=== PATIENT | female | born 1990 | race Caucasian/White ===

== ENCOUNTER 2024-02-10 14:36 | Inpatient (IN) | payer MEDICAID, SELFPAY ==
--- NOTE | ~2024-02-10 | CT_ITS ---
EXAMINATION: CT FOOT WITH IV CONTRAST RIGHT CLINICAL INFORMATION: ? osteo - pain, redness and swelling COMPARISON: None. TECHNIQUE: IV contrast and CT of the right foot. This contrast: Omnipaque [address] examination was performed using dose optimization techniques as appropriate, variously including the following: *Automated exposure control *Adjustment of mA and/or kV according to patient size (this includes techniques or standardized protocols for targeted exams where dose is matched to indication/reason for exam; i.e. extremities or head) *Use of iterative reconstruction technique DLP: 169 mGy-cm FINDINGS: Extensive subcutaneous fat reticulation consistent with acute inflammatory changes is noted with findings prominent along the base and medial aspect of the head of the first metatarsal and along the plantar aspect of the calcaneus. No soft tissue emphysematous changes are visualized. No embedded radiopaque foreign bodies noted. No ankle joint effusion demonstrated. No fractures or subluxations visualized. No erosive osseous lesions are noted to suggest possible osteomyelitis. No arthropathic changes identified. No discrete soft tissue fluid collections visualized. CT/CT foot RT w IV con IMPRESSION: Extensive soft tissue inflammatory changes. No evidence of osteomyelitis or septic arthropathy. No arthropathic changes of the foot. No soft tissue emphysematous changes to suggest necrotizing fasciitis. Electronically signed by: Venkat Looney MD 02/11/2024 04:52 AM EDT
[2024-02-10 14:46] VITALS: BP 168/80; PULSE 100; O2SAT 94
[2024-02-10 14:54] VITALS: BP 150/80; PULSE 93; RESP 16; TEMP 38.4; O2SAT 96; BMI 25.7
--- NOTE | 2024-02-10 14:59 | ED_ITS ---
HPI - General Adult General Chief complaint: Extremity Problem Stated complaint: LEG PAIN/? INF S/P INJ DRUGS,DIFF AMB PER EMS Time Seen by Provider: 02/10/24 21:01 Source: patient Mode of arrival: ambulatory Limitations: other History of Present Illness ED Provider: Dr. Lorraine Mota HPI narrative: patient comes to the emergency room complaining of 1 day of right greater toe pain and swelling. Patient states that her toe keeps getting bigger and more painful. Patient admits to IV drug use. It is difficult to get history from the patient as she keeps falling asleep, patient is under the influence of drugs versus alcohol Related Data Allergies Allergy/AdvReac Type Severity Reaction Status Date / Time amoxicillin [AMOXICILLIN] Allergy Unknown UNKNOWN Verified 02/10/24 14:57 Review of Systems 2 Review of Systems: Constitutional : No Weight loss, No Fever, No Chills, No Night Sweats, No Fatigue, No Malaise ENT/Mouth : No Hearing loss, No Ear Pain, No Nasal Congestion, No Sinus Pain, No Hoarseness, No sore throat, No Rhinorrhea, No Swallowing Difficulty Eyes: No Eye Pain, No Swelling, No Redness, No Foreign Body, No Discharge, No Vision Changes Cardiovascular : No Chest Pain, No SOB, No Dyspnea on Exertion, No Orthopnea, No Edema, No Palpitations Respiratory : No Cough, No Sputum, No Wheezing, No Smoke Exposure, No Dyspnea Gastrointestinal : No Nausea, No Vomiting, No Diarrhea, No Constipation, No abdominal Pain, No Hematochezia, No Melena Genitourinary : no irregular bleeding, No Dysuria, No Urinary Frequency, No Hematuria, No Urinary Incontinence, No Urgency, No Flank Pain, No Urinary Flow Changes, No Hesitancy Musculoskeletal : No joint pain, No Myalgias, No Joint Swelling Skin : complaining of greater toe pain and swelling Neuro : No Weakness, No Numbness, No Paresthesias, No Loss of Consciousness, No Dizziness, No Headache Psych : No Anxiety/Panic, No Depression, No SI/HI/AH/VH, No Social Issues, Heme/Lymph: No Bruising, No Bleeding,No Lymphadenopathy Endocrine : No Polyuria, No Polydipsia, No Temperature Intolerance PMFSH Past Medical History Medical History IV drug user Social History Social History Advance Directives: No Advance Directives Information Provided: No Physical Exam ED Vital Signs: Vital Signs - 24 hr 02/10/24 14:54 02/10/24 20:39 Temperature 101.2 F H 98.8 F Pulse Rate 93 86 Respiratory Rate 16 15 Blood Pressure 150/80 H 126/88 Pulse Oximetry 96 98 Oxygen Delivery Method Room Air Room Air BMI result Body Mass Index 25.7 Const Other: Appearance: Alert. Oriented X3. No acute distress. Eyes: Pupils equal, round and reactive to light. ENT: Pharynx normal. Neck: Normal inspection. Neck supple. No lymph nodes noted. No crepitus CVS: Normal heart rate and rhythm. Pulses normal. Normal S1 and S2, +2 left sternal border systolic murmur Respiratory: No respiratory distress. Breath sounds normal. No Wheezing. No rales Abdomen: Soft and nontender. No rigidity. No distention. Skin: Skin warm and dry. Normal skin color. Normal skin turgor. patient is great toe on the right foot looks swollen, erythematous, warm to touch Extremities: No lower extremity edema. No Lacerations. No Rash Neuro: Oriented X 3. No motor deficit. No sensory deficit. Moving all extremities. No slurred speech. CN 2 through 12 grossly intact Psych: calm, cooperative, normal affect Course Course Course Narrative: RME, this is a rapid medical exam performed by Louis Lopez please refer to primary provider for complete H&P- 33-year-old female presents for evaluation of right great toe and lower leg pain. Patient reports injecting to her right thigh but has pain mostly to the right great toe. The toe was edematous, erythematous. Plan for septic workup Medical Decision Making Medical Decision Making [facility] Narrative: - my interpretation of labs: Patient's white blood cell count 12.4, fever of 101.2 F. normal blood pressure - lactic acid and blood cultures are pending - sepsis is not suspected - patient declined x-ray of the foot - patient receiving normal saline IV fluids, vancomycin and Zosyn - on physical exam, patient has systolic murmur. According to the patient, she has never been told she has a heart murmur. - I discussed the above-mentiond with Dr. Khan from the Medicine team, patient being admitted Differential Diagnosis Differential Diagnoses: The differential diagnosis associated with the presentation includes ( cellulitis, abscess, endocarditis) Admission/Observation Consideration of admission/observation: Escalation of care including admission/observation considered Consult Healthcare Provider Management of the patient was discussed with: Hospitalist Lab Data MDM Lab Attestation statement: I reviewed the patient's lab results. 02/10/24 20:01 02/10/24 20:01 Labs: Lab Results 02/10/24 Range/Units 20:01 WBC 12.4 H (4.8-10.8) X10*3/uL RBC 3.86 L (4.20-5.50) X10*6/uL Hgb 10.9 L (12.0-16.0) g/dl Hct 32.5 L (37.0-47.0) % MCV 84.2 (80.0-98.0) fL MCH 28.2 (27.0-33.0) pg MCHC 33.5 (31.0-35.0) g/dl RDW 12.3 (11.0-16.0) % Plt Count 186 (160-400) X10*3/uL MPV 10.8 (9.4-12.3) fL Immature Gran % (Auto) 0.4 (0.0-0.4) % Neut % (Auto) 79.2 H (45-73) % Lymph % (Auto) 13.3 L (20-40) % [place] % (Auto) 6.7 (2-11) % Eos % (Auto) 0.2 (0-4) % Baso % (Auto) 0.2 (0-2) % Lymph # (Auto) 1.7 (1.2-4.9) X10*3/uL [place] # (Auto) 0.8 (0.1-1.2) X10*3/uL Eos # (Auto) 0.0 (0.0-0.4) X10*3/uL Baso # (Auto) 0.0 (0.0-0.2) X10*3/uL Abs Immat Gran (auto) 0.05 H (0.00-0.03) X10*3/uL Absolute Neuts (auto) 9.8 H (2.0-8.3) x10*3/uL Absolute Nucleated RBC 0.000 (0.0-0.012) X10*3/uL Nucleated RBC % (auto) 0.0 (0.0-0.2) /100WBC Sodium 138 (135-145) mmol/L Potassium 3.3 (3.3-5.1) mmol/L Chloride 104 (96-108) mmol/L Carbon Dioxide 25 (22-29) mmol/L Anion Gap 12 (12-20) BUN 10 (9-16) mg/dL Creatinine 0.64 (0.5-1.4) mg/dL Estim Creat Clear Calc 116.1 Estimated GFR > 60 Random Glucose 102 (60-115) mg/dL Lactic Acid 0.7 (0.5-2.0) mmol/L Calcium 8.8 (8.4-10.2) mg/dL Total Bilirubin 0.6 (0.0-1.0) mg/dL AST 18 (5-31) U/L ALT 17 (0-31) U/L Alkaline Phosphatase 50 (39-117) U/L C-Reactive Protein 15.65 H (< or = 0.50) mg/dL Total Protein 7.2 (6.5-8.0) g/dL Albumin 3.7 (3.5-5.0) g/dL Lipase 7 L (8-78) U/L Ethyl Alcohol < 10 mg/dL Critical Care Time Critical Care Time Critical Care Time: Yes Total Critical Care Time: 60 Attestation: I have personally provided critical care time. Time includes review of lab data, radiology results, discussion with consultants, and monitoring for potential decompensation. Intervention performed as documented. Discharge Plan Discharge Clinical Impression: Cellulitis, Systolic murmur Patient Disposition: Admitted As Inpatient Print Language: Libyan
[2024-02-10 20:10] LABS: MANUAL DIFF FLAG NO
[2024-02-10 20:12] LABS: Basophils Percent Auto 0.2 % (0-2); Eosinophils Percent Auto 0.2 % (0-4); Hematocrit 32.5 % (37.0-47.0); Hemoglobin 10.9 g/dl (12.0-16.0); Imm Gran Abs Auto 0.05 X10*3/uL (0.00-0.03); Imm Gran Pct Auto 0.4 % (0.0-0.4); Lymphocytes Absolute Auto 1.7 X10*3/uL (1.2-4.9); Lymphocytes Percent Auto 13.3 % (20-40); Mean Corpuscular HGB Conc 33.5 g/dl (31.0-35.0); Mean Corpuscular Hemoglobin 28.2 pg (27.0-33.0); Mean Corpuscular Volume 84.2 fL (80.0-98.0); Mean Platelet Volume 10.8 fL (9.4-12.3); Monocytes Absolute Auto 0.8 X10*3/uL (0.1-1.2); Monocytes Percent Auto 6.7 % (2-11); Neutrophils Absolute Auto 9.8 x10*3/uL (2.0-8.3); Neutrophils Percent Auto 79.2 % (45-73); Platelet Count 186 X10*3/uL (160-400); Red Blood Count 3.86 X10*6/uL (4.20-5.50); Red Cell Distribution Width 12.3 % (11.0-16.0); White Blood Count 12.4 X10*3/uL (4.8-10.8)
[2024-02-10 20:25] LABS: Alanine Aminotransferase 17 U/L (0-31); Albumin Level 3.7 g/dL (3.5-5.0); Alkaline Phosphatase 50 U/L (39-117); Anion Gap 12 (12-20); Aspartate Amino Transferase 18 U/L (5-31); Bilirubin Total 0.6 mg/dL (0.0-1.0); Blood Urea Nitrogen 10 mg/dL (9-16); C Reactive Protein 15.65 mg/dL (< or = 0.50); Calcium 8.8 mg/dL (8.4-10.2); Carbon Dioxide 25 mmol/L (22-29); Chloride 104 mmol/L (96-108); Creatinine Clr Calc Pharmacy 116.1; Estimated Glomerular Filt Rate > 60; Glucose Random 102 mg/dL (60-115); Lipase 7 U/L (8-78); Potassium 3.3 mmol/L (3.3-5.1); Sodium 138 mmol/L (135-145); Total Protein 7.2 g/dL (6.5-8.0)
[2024-02-10 20:39] VITALS: BP 126/88; PULSE 86; RESP 15; TEMP 37.1; O2SAT 98
[2024-02-10 20:39] LABS: Ethanol < 10 mg/dL
--- NOTE | 2024-02-10 20:46 | PC.NURSE ---
[facility] [place]
[2024-02-10 20:58] LABS: Lactic Acid 0.7 mmol/L (0.5-2.0)
--- NOTE | 2024-02-10 22:34 | PM.IMHP ---
History of Present Illness Date of Service: 02/10/24 Chief Complaint: Foot infection This is a 33-year-old female with pertinent history of IV substance use disorder who presents to the emergency department for evaluation of right foot pain. Patient states her symptoms started 1 day prior to presentation. She initially had right great toe reddening, pain and it soon progressed to involve the right foot. Also with warmth. Does endorse associated fevers and chills. She admits to using IV drugs in her right leg. Never has had skin infection in the past. No chest pain, palpitations, shortness of breath, abdominal pain, changes in urinary or bowel habits. In the emergency department, patient was found to be septic and initiated on empiric IV antibiotics. Review of Systems Constitutional: Constitutional: Reports fatigue Cardiovascular: Cardiovascular: Reports no additional cardiovascular complaints Respiratory: Respiratory: Reports no additional respiratory complaints Gastrointestinal: Gastrointestinal: Reports no additional gastrointestinal complaints Genitourinary: Genitourinary: Reports no additional female genitourinary complaints Endocrine: Endocrine: Reports fatigue [facility] Medical History IV drug user Pertinent family history: No family history of early cad Social History Advance Directives: No Advance Directives Information Provided: No Meds Allergies Allergy/AdvReac Type Severity Reaction Status Date / Time amoxicillin [AMOXICILLIN] Allergy Unknown UNKNOWN Verified 02/10/24 14:57 Active Medications: Current Medications Sodium Chloride (Ns) 1,000 mls @ 999 mls/hr IVCONT .Q1H1M ONE Stop: 02/10/24 23:21 Vancomycin HCl 1,000 mg/Vancomycin HCl 750 mg/ Sodium Chloride 535 mls @ 267.5 mls/hr IV ONCE ONE Stop: 02/11/24 00:20 Piperacillin Sod/Tazobactam (Sod 3.375 gm/ Sodium Chloride) 50 mls @ 100 mls/hr IV ONCE ONE Stop: 02/10/24 22:50 Physical Exam Vital Signs and Narrative: Vital Signs: Last Vital Signs Temp 98.8 F 02/10/24 20:39 Pulse 86 02/10/24 20:39 Resp 15 02/10/24 20:39 BP 126/88 02/10/24 20:39 Pulse Ox 98 02/10/24 20:39 O2 Del Method Room Air 02/10/24 20:39 BMI result Body Mass Index 25.7 Middle-aged female lying in bed in no distress Neck supple, no JVD Regular rate and rhythm, S1-S2 heard, systolic murmur+ Regular breath sounds bilaterally, no wheezing or crackles appreciated Abdomen soft nontender, no guarding, no rigidity Patient is awake, alert and oriented to self, place, time and person ; no focal motor deficit Psych: Normal mood Right foot great toe and foot with erythema swelling, warmth and tenderness ; toenails with nail discoloration, nail plate thickening and destruction Results Labs 02/10/24 20:01 02/10/24 20:01 Labs: Laboratory Results - last 24 hr 02/10/24 20:01 MCV 84.2 MCH 28.2 MCHC 33.5 RDW 12.3 Plt Count 186 MPV 10.8 Immature Gran % (Auto) 0.4 Neut % (Auto) 79.2 H Lymph % (Auto) 13.3 L [place] % (Auto) 6.7 Eos % (Auto) 0.2 Baso % (Auto) 0.2 Lymph # (Auto) 1.7 [place] # (Auto) 0.8 Eos # (Auto) 0.0 Baso # (Auto) 0.0 Abs Immat Gran (auto) 0.05 H Absolute Neuts (auto) 9.8 H Absolute Nucleated RBC 0.000 Nucleated RBC % (auto) 0.0 Anion Gap 12 Estim Creat Clear Calc 116.1 Estimated GFR > 60 Random Glucose 102 Lactic Acid 0.7 Calcium 8.8 Total Bilirubin 0.6 AST 18 ALT 17 Alkaline Phosphatase 50 C-Reactive Protein 15.65 H Total Protein 7.2 Albumin 3.7 Lipase 7 L Ethyl Alcohol < 10 Assessment and Plan (1) Cellulitis: Status: Acute Plan This is a 33-year-old female with pertinent history of IV substance use disorder who presents to the emergency department for evaluation of right foot pain. Patient states her symptoms started 1 day prior to presentation. #. Sepsis due to right foot cellulitis: Resuscitated with IV crystalloids. Initiating empiric IV vancomycin. Lactic acid and blood culture obtained. Monitor for improvement. Imaging pending to rule out underlying osteomyelitis or collection. #. Right foot onychomycosis: Initiating terbinafine #. Polysubstance use disorder: UDS pending. Monitor for withdrawal. Consulted Addiction Team Med rec pending DVT prophylaxis: Lovenox Full code Admit as inpatient and will require two night minimum hospital stay for IV antibiotics (as above), which is not possible in a lesser acute setting. Quality Stroke Does the patient have a stroke diagnosis?: No VTE Prior VTE?: No VTE Risk Level:: Medical - moderate - high VTE Device Contraindication: Treatment Not Indicated VTE Drug Contraindication: N/A - Med Ordered
[2024-02-10 22:55] LABS: Erythrocyte Sedimentation Rate 37 MM/HR (0-20)
[2024-02-10 23:28] LABS: HCG Quantitative < 2 mIU/mL
[2024-02-10 23:31] LABS: Appearance Urine Clear; Color Urine Yellow; Glucose Urine UA Negative (Negative); Leukocyte Esterase Urine Trace (Negative); Nitrite Urine Negative (Negative); UMIC TRIGGER UACC YES; Urine Blood Negative (Negative); Urine Ketones 15 mg/dL (Negative); Urine Protein Trace mg/dL (Neg-Trace)
[2024-02-10 23:34] LABS: Bacteria Urine None Seen (None Seen); Hyaline Casts Urine 0-2 /LPF (0-2); RBC Urine 0-2 /HPF (0-2); Squamous Epithelial Cell Urine 0-2 /HPF (0-2); WBC Urine 0-5 /HPF (0-5)
[2024-02-10 23:42] LABS: Amphetamine Screen Urine Not Detected (Not Detect); Barbiturates, Urine Not Detected (Not Detect); Benzodiazepines Screen Urine POSITIVE (Not Detect); Buprenorphine Scr Not Detected (Not Detect); Cannabinoid Screen Urine Not Detected (Not Detect); Cocaine Screen Urine POSITIVE (Not Detect); Fentanyl, urine POSITIVE (Not Detect); Methadone Screen, Urine Positive (Not Detect); Opiate Screen Urine POSITIVE (Not Detect); Oxycodone Screen Urine Not Detected (Not Detect); Phencyclidine Screen Urine Not Detected (Not Detect)
--- NOTE | 2024-02-10 23:44 | PC.NURSE ---
CT reported IV access infiltrated while attmepting to flush. Pt has no other access at this time.
[2024-02-11] MEDS: vancomycin HCL 1,000 MG, vancomycin HCL 750 MG in 0.9 % Sodium Chloride 500 ML 267.5 MG IV (00:10)
[2024-02-11] MEDS: 0.9 % Sodium Chloride 1,000 ML 999 ML IVCONT (00:10)
--- NOTE | 2024-02-11 00:13 | PC.NURSE ---
IV access established via ultrasound, 20G right basilic vein. No signs of infiltration or pain reported on insertion. Pt tolerated well.
[2024-02-11] MEDS: Enoxaparin Sodium 40 MG/0.4 ML SYRINGE SUBCUT ×2 (01:02→23:07)
[2024-02-11] MEDS: 0.9 % Sodium Chloride Flush 3 ML SYRINGE IVFLUSH ×3 (01:04→23:13)
[2024-02-11] MEDS: iohexoL 350 MG/ML 100 ML INFUS..BTL 85 ML IV (01:04)
[2024-02-11] MEDS: Piperacillin Sodium/Tazobactam 3.375 GM in 0.9 % Sodium Chloride 50 ML IV (02:28)
[2024-02-11 03:36] VITALS: BP 147/84; PULSE 89; RESP 16; O2SAT 94
--- NOTE | 2024-02-11 04:19 | PC.NURSE ---
Pt is sleeping, but arousable with verbal stimuli. Appears comfortable. No verbalized needs, but call light is within reach and bed is at lowest position. Will continue to monitor for any changes.
--- NOTE | 2024-02-11 06:26 | PHA.PROG ---
Admission Date/Time: February 10, 2024 22:33 Indication: Skin Weight in k.771 kg Serum Creatinine - Last 168 Hours 02/10/24 20:01 Creatinine 0.64 Estimated CrCl and GFR - Last 168 Hours 02/10/24 20:01 Estim Creat Clear Calc 116.1 Estimated GFR > 60 Vancomycin Loading Dose: 1,750 mg Current Vancomycin Dosing Regimen: 1,250 mg q12h Vancomycin Monitoring using AUC goal of 400 - 600 range with trough as surrogate marker: 515, predicted trough 14.5 Date and Time for next Vancomycin Level to be drawn: 02/11 @ 1000 Pharmacist Comments on Vancomycin Plan: Vancomycin dosing will take advantage of [employer] as a clinical decision support tool that uses Bayesian modeling to calculate individual patient's pharmacokinetic parameters and forecast the patient's drug concentration time course with the target goal AUC 24 range of 400 - 600 mg/L/hr.
--- NOTE | 2024-02-11 08:29 | HE.PHANOTE ---
Re Methadone Received verification form from RN. Pt received Methadone 90 mg from [facility] in [place]. Last dose was on 02/08/2024.
--- NOTE | 2024-02-11 08:31 | PHA.MEDREC ---
Addendum entered by Stacie Willard [facility] 02/11/24 09:17: reviewed Original Note: Pharmacy Consult ? Medication Reconciliation Pharmacy has completed the medication reconciliation. Spoke to pt at bedside, they stated that they sometimes take mirtazipine but didn't care about it. Requested methadone.
--- NOTE | 2024-02-11 09:27 | PC.NURSE ---
Methadone delayed at this time due to pt being very somnolent, arousable to verbal but quickly falls back asleep. Pt placed into hospital bed for comfort and safety/
[2024-02-11] MEDS: methADONE HCl 20 MG/2 ML ORAL.CONC 90 MG PO (10:22)
[2024-02-11] MEDS: vancomycin HCL 1,250 MG in 0.9 % Sodium Chloride 250 ML 166.67 MG IV ×2 (11:27→23:16)
--- NOTE | 2024-02-11 12:26 | MHC.CM.PN ---
CM has made multiple attempts to speak with Patient but she is not arousable by calling her name; CM attempted to reach contact/Aunt but listed number appears to be incorrect. Patient has a history of IVDA and is on Methadone; CT of foot shows no evidence of Osteo. DC plan is TBD at this time; CM has initiated and will follow for dc planning.
--- NOTE | 2024-02-11 12:46 | P.PNIM_ITS ---
Subjective Subjective Date of Service: 02/11/24 Interval History: Being followed for right foot cellulitis. Somnolent, easily arousable, complaining of persistent right foot pain, denies fever, no chills, requesting for home dose of methadone, offers no other acute symptoms. Review of Systems All other system reviewed and negative. Physical Exam 2 Vital Signs: Vital Signs: Last Vital Signs Temp 98.8 F 02/10/24 20:39 Pulse 89 02/11/24 03:36 Resp 16 02/11/24 03:36 BP 147/84 H 02/11/24 03:36 Pulse Ox 94 02/11/24 03:36 O2 Del Method Room Air 02/11/24 03:36 BMI result Body Mass Index 25.7 Const: Other: General somnolent easily arousable, in no acute distress. Neck no JVD. CVS regular rate rhythm, systolic murmur Respiratory lungs clear to auscultation, no respiratory distress, no wheeze, no rhonchi. Gastrointestinal abdomen soft, non tender, bowel sounds audible, no guarding , no rigidity. Extremities right great toe and dorsum of foot swollen with erythema, tender to palpation, thick nail plate , crusted, deformed nails Neuro non focal ,moving all 4 extremity, speech clear. Skin no rash Objective Data Active Medications Acetaminophen (Acetaminophen 325 Mg Tablet) 650 mg PO Q6H PRN PRN Reason: Pain, Mild (Pain Scale 1-3), fever or headache Calcium Carbonate (Calcium Carbonate 750 Mg Tab.Chew) 750 mg PO Q4H PRN PRN Reason: Heartburn Enoxaparin Sodium (Enoxaparin Sodium 40 Mg/0.4 Ml Syringe) 40 mg SUBCUT Q24H [facility] Last Admin: 02/11/24 01:02 Dose: 40 mg Documented By: DIANN Vancomycin HCl 1,250 mg/ (Sodium Chloride) 250 mls @ 166.667 mls/hr IV Q12H [facility] Last Admin: 02/11/24 11:27 Dose: 166.67 mls/hr Documented By: MALLIKA Magnesium Hydroxide (Milk Of Magnesia 30 Ml Oral.Susp) 30 ml PO DAILY PRN PRN Reason: Constipation Melatonin (Melatonin 3 Mg Tablet) 6 mg PO BEDTIME PRN PRN Reason: Insomnia Methadone HCl (Methadone Hcl 20 Mg/2 Ml Oral.Conc) 90 mg PO DAILY [facility] Last Admin: 02/11/24 10:22 Dose: 90 mg Documented By: MALLIKA Co-signed By: RAMNOITA Non-Formulary Medication (Terbinafine) 250 mg PO DAILY [facility] Ondansetron HCl (Ondansetron Hcl 4 Mg/2 Ml Vial) 4 mg IVPUSH Q8H PRN PRN Reason: Nausea and Vomiting Pharmacy Consult (Consult Rx Vancomycin Dosing) 1 each MISCELLANE DAILY PRN PRN Reason: Consult order Sodium Chloride (0.9 % Sodium Chloride Flush 3 Ml Syringe) 3 ml IVFLUSH QSHIFT [facility] Last Admin: 02/11/24 09:24 Dose: Not Given Documented By: MALLIKA Non-Admin Reason: Patient Asleep Labs 02/10/24 20:01 02/10/24 20:01 Labs: Laboratory Results - last 24 hr 02/10/24 02/10/24 02/10/24 20:00 20:01 23:23 MCV 84.2 MCH 28.2 MCHC 33.5 RDW 12.3 Plt Count 186 MPV 10.8 Immature Gran % (Auto) 0.4 Neut % (Auto) 79.2 H Lymph % (Auto) 13.3 L [place] % (Auto) 6.7 Eos % (Auto) 0.2 Baso % (Auto) 0.2 Lymph # (Auto) 1.7 [place] # (Auto) 0.8 Eos # (Auto) 0.0 Baso # (Auto) 0.0 Abs Immat Gran (auto) 0.05 H Absolute Neuts (auto) 9.8 H Absolute Nucleated RBC 0.000 Nucleated RBC % (auto) 0.0 ESR 37 H Anion Gap 12 Estim Creat Clear Calc 116.1 Estimated GFR > 60 Random Glucose 102 Lactic Acid 0.7 Calcium 8.8 Total Bilirubin 0.6 AST 18 ALT 17 Alkaline Phosphatase 50 C-Reactive Protein 15.65 H Total Protein 7.2 Albumin 3.7 Lipase 7 L Beta HCG, Quant < 2 Urine Color Yellow Urine Appearance Clear Urine pH 7.0 Ur Specific [place] 1.020 Urine Protein Trace Urine Glucose (UA) Negative Urine Ketones 15 Urine Blood Negative Urine Nitrite Negative Ur Leukocyte Esterase Trace H Urine RBC 0-2 Urine WBC 0-5 Ur Squamous Epith Cells 0-2 Urine Bacteria None Seen Hyaline Casts 0-2 Urine Opiates Screen POSITIVE H Ur Buprenorphine Scrn Not Detected Ur Oxycodone Screen Not Detected Urine Methadone Screen Positive H Urine Fentanyl Screen POSITIVE H Ur Barbiturates Screen Not Detected Ur Phencyclidine Scrn Not Detected Ur Amphetamines Screen Not Detected U Benzodiazepines Scrn POSITIVE H Urine Cocaine Screen POSITIVE H U Marijuana (THC) Screen Not Detected Ethyl Alcohol < 10 Assessment and Plan (1) Cellulitis: Status: Acute Plan 33-year-old female with pertinent history of IV substance use disorder who presents to the emergency department for evaluation of right foot pain. Patient states her symptoms started 1 day prior to presentation. #. Sepsis due to right foot cellulitis: Admitted with temp 101.2 degrees, leukocytosis and tachycardia, normal lactic acid Continue IV vancomycin started 02/09 Blood cultures x2 pending, follow WBC. Elevated CRP 15.65, CT foot showed extensive soft tissue inflammatory changes, no evidence of osteomyelitis or septic arthropathy no finding suggestive of necrotizing fasciitis Follow CBC and CRP #. Right foot onychomycosis: Outpatient treatment #. Polysubstance use disorder: Urine tox positive for opiates, fentanyl, benzo, cocaine and methadone Continue home dose of methadone ,Addiction Team consult DVT prophylaxis: Lovenox Full code Patient will require continued inpatient hospitalization for IV antibiotics (as above), which is not possible in a lesser acute setting. Quality Stroke Does the patient have a stroke diagnosis?: No VTE Prior VTE?: No VTE Risk Level:: Medical - moderate - high VTE Device Contraindication: Treatment Not Indicated VTE Drug Contraindication: N/A - Med Ordered
[2024-02-11 14:07] VITALS: PULSE 84; RESP 16; O2SAT 94
--- NOTE | 2024-02-11 14:07 | PC.NURSE ---
Pt continues to sleep, breathing even and unlabored. SPO2 on RA 93-96%.
[2024-02-11 14:29] LABS: MANUAL DIFF FLAG NO
[2024-02-11 14:30] LABS: Basophils Percent Auto 0.2 % (0-2); Eosinophils Percent Auto 0.1 % (0-4); Hematocrit 29.7 % (37.0-47.0); Imm Gran Abs Auto 0.07 X10*3/uL (0.00-0.03); Imm Gran Pct Auto 0.7 % (0.0-0.4); Lymphocytes Absolute Auto 1.5 X10*3/uL (1.2-4.9); Lymphocytes Percent Auto 13.9 % (20-40); Mean Corpuscular HGB Conc 33.7 g/dl (31.0-35.0); Mean Corpuscular Hemoglobin 28.2 pg (27.0-33.0); Mean Corpuscular Volume 83.9 fL (80.0-98.0); Mean Platelet Volume 11.1 fL (9.4-12.3); Monocytes Absolute Auto 0.6 X10*3/uL (0.1-1.2); Neutrophils Absolute Auto 8.3 x10*3/uL (2.0-8.3); Neutrophils Percent Auto 79.1 % (45-73); Platelet Count 173 X10*3/uL (160-400); Red Blood Count 3.54 X10*6/uL (4.20-5.50); Red Cell Distribution Width 12.1 % (11.0-16.0); White Blood Count 10.5 X10*3/uL (4.8-10.8)
--- NOTE | 2024-02-11 14:39 | MHC.RECOVRN ---
Attempted to meet with pt after consult placed to Addiction Medicine for polysubstance use. Pt laying in bed, asleep, wakes briefly to touch but quickly falls back to sleep. Unable to engage in conversation. Pt currently receiving 90 mg methadone daily. Will attempt to meet with pt at a later time. Rayna Tomlin APRN, aware.
[2024-02-11 14:55] LABS: Anion Gap 10 (12-20); Blood Urea Nitrogen 6 mg/dL (9-16); Calcium 8.6 mg/dL (8.4-10.2); Carbon Dioxide 26 mmol/L (22-29); Chloride 105 mmol/L (96-108); Creatinine Clr Calc Pharmacy 135.1; Estimated Glomerular Filt Rate > 60; Glucose Random 93 mg/dL (60-115); Potassium 3.5 mmol/L (3.3-5.1); Sodium 137 mmol/L (135-145)
[2024-02-11 15:53] VITALS: BP 126/83; PULSE 87; RESP 20; TEMP 37.2; O2SAT 97
[2024-02-11 19:27] VITALS: BP 141/82; PULSE 94; RESP 20; TEMP 37.2; O2SAT 95
[2024-02-12 03:38] VITALS: BP 144/83; PULSE 86; RESP 18; TEMP 36.4; O2SAT 94
[2024-02-12 07:34] VITALS: BP 152/78; PULSE 83; RESP 16; TEMP 36.7; O2SAT 95
[2024-02-12] MEDS: 0.9 % Sodium Chloride Flush 3 ML SYRINGE IVFLUSH ×3 (09:23→23:12)
[2024-02-12] MEDS: methADONE HCl 20 MG/2 ML ORAL.CONC 90 MG PO (09:25)
--- NOTE | 2024-02-12 13:39 | HO.ADDICTPRO ---
Subjective Subjective Date of Service: 02/12/24 Reason For Visit: foot infection Interim History: Addiction consult placed for patient admitted with right foot cellulitis History of OUD, engaged in treatment with [facility]. Current dose of methadone 90mg daily Consult requested due to ongoing substance use Patient seen in room 383 with assigner. She was laying in bed, eyes closed. Wakes to voice and answers questions, but eyes remain closed. She reported feeling uncomfortable and identified her foot as being in pain When asked about withdrawal she denied. Attempted to ask additional questions however patient requested to be left alone. Review of Systems Constitutional: Reports as per HPI Mental Status Exam Mental Status Exam Level of Consciousness: Alert (eyes closed, intermittently sleeping ) Diagnostics Vital Signs (24Hr): Vital Signs - 24 hr 02/11/24 14:07 02/11/24 15:53 02/11/24 19:27 Temperature 99 F 98.9 F Pulse Rate 84 87 94 Respiratory Rate 16 20 20 Blood Pressure 126/83 141/82 H Pulse Oximetry 94 97 95 Oxygen Delivery Method Room Air Room Air Room Air 02/12/24 03:38 02/12/24 07:34 Temperature 97.5 F 98.1 F Pulse Rate 86 83 Respiratory Rate 18 16 Blood Pressure 144/83 H 152/78 H Pulse Oximetry 94 95 Oxygen Delivery Method Room Air Room Air BMI result Body Mass Index 25.7 Labs 02/11/24 14:24 02/11/24 14:24 Labs: Laboratory Results - last 48 hr 02/10/24 02/10/24 02/10/24 20:00 20:01 23:23 WBC 12.4 H RBC 3.86 L Hgb 10.9 L Hct 32.5 L MCV 84.2 MCH 28.2 MCHC 33.5 RDW 12.3 Plt Count 186 MPV 10.8 Immature Gran % (Auto) 0.4 Neut % (Auto) 79.2 H Lymph % (Auto) 13.3 L Davidson % (Auto) 6.7 Eos % (Auto) 0.2 Baso % (Auto) 0.2 Lymph # (Auto) 1.7 Davidson # (Auto) 0.8 Eos # (Auto) 0.0 Baso # (Auto) 0.0 Abs Immat Gran (auto) 0.05 H Absolute Neuts (auto) 9.8 H Absolute Nucleated RBC 0.000 Nucleated RBC % (auto) 0.0 ESR 37 H Sodium 138 Potassium 3.3 Chloride 104 Carbon Dioxide 25 Anion Gap 12 BUN 10 Creatinine 0.64 Estim Creat Clear Calc 116.1 Estimated GFR > 60 Random Glucose 102 Lactic Acid 0.7 Calcium 8.8 Total Bilirubin 0.6 AST 18 ALT 17 Alkaline Phosphatase 50 C-Reactive Protein 15.65 H Total Protein 7.2 Albumin 3.7 Lipase 7 L Beta HCG, Quant < 2 Urine Color Yellow Urine Appearance Clear Urine pH 7.0 Ur Specific [place] 1.020 Urine Protein Trace Urine Glucose (UA) Negative Urine Ketones 15 Urine Blood Negative Urine Nitrite Negative Ur Leukocyte Esterase Trace H Urine RBC 0-2 Urine WBC 0-5 Ur Squamous Epith Cells 0-2 Urine Bacteria None Seen Hyaline Casts 0-2 Urine Opiates Screen POSITIVE H Ur Buprenorphine Scrn Not Detected Ur Oxycodone Screen Not Detected Urine Methadone Screen Positive H Urine Fentanyl Screen POSITIVE H Ur Barbiturates Screen Not Detected Ur Phencyclidine Scrn Not Detected Ur Amphetamines Screen Not Detected U Benzodiazepines Scrn POSITIVE H Urine Cocaine Screen POSITIVE H U Marijuana (THC) Screen Not Detected Ethyl Alcohol < 10 02/11/24 14:24 WBC 10.5 RBC 3.54 L Hgb 10.0 L Hct 29.7 L MCV 83.9 MCH 28.2 MCHC 33.7 RDW 12.1 Plt Count 173 MPV 11.1 Immature Gran % (Auto) 0.7 H Neut % (Auto) 79.1 H Lymph % (Auto) 13.9 L Davidson % (Auto) 6.0 Eos % (Auto) 0.1 Baso % (Auto) 0.2 Lymph # (Auto) 1.5 Davidson # (Auto) 0.6 Eos # (Auto) 0.0 Baso # (Auto) 0.0 Abs Immat Gran (auto) 0.07 H Absolute Neuts (auto) 8.3 Absolute Nucleated RBC 0.000 Nucleated RBC % (auto) 0.0 ESR Sodium 137 Potassium 3.5 Chloride 105 Carbon Dioxide 26 Anion Gap 10 L BUN 6 L Creatinine 0.55 Estim Creat Clear Calc 135.1 Estimated GFR > 60 Random Glucose 93 Lactic Acid Calcium 8.6 Total Bilirubin AST ALT Alkaline Phosphatase C-Reactive Protein Total Protein Albumin Lipase Beta HCG, Quant Urine Color Urine Appearance Urine pH Ur Specific [place] Urine Protein Urine Glucose (UA) Urine Ketones Urine Blood Urine Nitrite Ur Leukocyte Esterase Urine RBC Urine WBC Ur Squamous Epith Cells Urine Bacteria Hyaline Casts Urine Opiates Screen Ur Buprenorphine Scrn Ur Oxycodone Screen Urine Methadone Screen Urine Fentanyl Screen Ur Barbiturates Screen Ur Phencyclidine Scrn Ur Amphetamines Screen U Benzodiazepines Scrn Urine Cocaine Screen U Marijuana (THC) Screen Ethyl Alcohol Imaging Radiology Impressions: ITS Impressions Foot CT 02/11/24 00:45 IMPRESSION: Extensive soft tissue inflammatory changes. No evidence of osteomyelitis or septic arthropathy. No arthropathic changes of the foot. No soft tissue emphysematous changes to suggest necrotizing fasciitis. Electronically signed by: Venkat Looney MD 02/11/2024 04:52 AM EDT RP Medications Medications Current Medications Acetaminophen (Acetaminophen 325 Mg Tablet) 650 mg PO Q6H PRN PRN Reason: Pain, Mild (Pain Scale 1-3), fever or headache Calcium Carbonate (Calcium Carbonate 750 Mg Tab.Chew) 750 mg PO Q4H PRN PRN Reason: Heartburn Enoxaparin Sodium (Enoxaparin Sodium 40 Mg/0.4 Ml Syringe) 40 mg SUBCUT Q24H [facility] Last Admin: 02/11/24 23:07 Dose: 40 mg Vancomycin HCl 1,250 mg/ (Sodium Chloride) 250 mls @ 166.667 mls/hr IV Q12H [facility] Last Infusion: 02/12/24 00:53 Dose: Infused Magnesium Hydroxide (Milk Of Magnesia 30 Ml Oral.Susp) 30 ml PO DAILY PRN PRN Reason: Constipation Melatonin (Melatonin 3 Mg Tablet) 6 mg PO BEDTIME PRN PRN Reason: Insomnia Methadone HCl (Methadone Hcl 20 Mg/2 Ml Oral.Conc) 90 mg PO DAILY [facility] Last Admin: 02/12/24 09:25 Dose: 90 mg Ondansetron HCl (Ondansetron Hcl 4 Mg/2 Ml Vial) 4 mg IVPUSH Q8H PRN PRN Reason: Nausea and Vomiting Pharmacy Consult (Consult Rx Vancomycin Dosing) 1 each MISCELLANE DAILY PRN PRN Reason: Consult order Sodium Chloride (0.9 % Sodium Chloride Flush 3 Ml Syringe) 3 ml IVFLUSH QSHIFT [facility] Last Admin: 02/12/24 09:23 Dose: 3 ml Allergies Allergies Allergy/AdvReac Type Severity Reaction Status Date / Time amoxicillin [AMOXICILLIN] Allergy Unknown UNKNOWN Verified 02/10/24 14:57 Assessment & Plan Assessment & Plan (1) Opioid use disorder: Status: Acute Code(s): F11.90 - Opioid use, unspecified, uncomplicated Assessment and Plan: home methadone dose already ordered will attempt to meet with patient at a later date Total time managing care of this patient today __15__ minutes.
[2024-02-12 14:16] LABS: Creatinine Clr Calc Pharmacy 142.9; Estimated Glomerular Filt Rate > 60; Vancomycin Random 3.2 mcg/mL (15-20)
--- NOTE | 2024-02-12 14:23 | HE.PHANOTE ---
RE: BIJUO DOSING Random came back as 3.2 @ 1331 (pt refused labs the first time, due at 1000). Dose increases to 1500 q8h, next random is scheduled for 02/13/24 @1300.
[2024-02-12] MEDS: vancomycin HCL 1,500 MG in 0.9 % Sodium Chloride 500 ML 333.33 MG IV ×2 (15:11→23:18)
--- NOTE | 2024-02-12 15:24 | HO.PM.IMPN ---
Subjective Subjective Date of Service: 02/12/24 Interval History: Noted to be sleepy this morning, but was answering questions appropriately with eyes closed, denied fever, no chills complain of right pain. More awake alert this afternoon eating lunch, admits to have a relapse 2 weeks ago, has a plan for detox at outpatient clinic. Review of Systems All other system reviewed and negative. Physical Exam Vital Signs: Vital Signs: Last Vital Signs Temp 98.1 F 02/12/24 07:34 Pulse 83 02/12/24 07:34 Resp 16 02/12/24 07:34 BP 152/78 H 02/12/24 07:34 Pulse Ox 95 02/12/24 07:34 O2 Del Method Room Air 02/12/24 07:34 BMI result Body Mass Index 25.7 Const: Other: General in no acute distress. Neck no JVD. CVS regular rate rhythm, systolic murmur Respiratory lungs clear to auscultation, no respiratory distress, no wheeze, no rhonchi. Gastrointestinal abdomen soft, non tender, bowel sounds audible, no guarding , no rigidity. Extremities right great toe and dorsum of foot swollen and erythema improved since yesterday, tender to palpation, thick nail plate , crusted, deformed nails Neuro non focal ,moving all 4 extremity, speech clear. Skin no rash Objective Data Active Medications Acetaminophen (Acetaminophen 325 Mg Tablet) 650 mg PO Q6H PRN PRN Reason: Pain, Mild (Pain Scale 1-3), fever or headache Calcium Carbonate (Calcium Carbonate 750 Mg Tab.Chew) 750 mg PO Q4H PRN PRN Reason: Heartburn Enoxaparin Sodium (Enoxaparin Sodium 40 Mg/0.4 Ml Syringe) 40 mg SUBCUT Q24H [facility] Last Admin: 02/11/24 23:07 Dose: 40 mg Documented By: DIANNE Vancomycin HCl 1,500 mg/ (Sodium Chloride) 500 mls @ 333.333 mls/hr IV Q8H [facility] Last Admin: 02/12/24 15:11 Dose: 333.33 mls/hr Documented By: MARICARMEN Magnesium Hydroxide (Milk Of Magnesia 30 Ml Oral.Susp) 30 ml PO DAILY PRN PRN Reason: Constipation Melatonin (Melatonin 3 Mg Tablet) 6 mg PO BEDTIME PRN PRN Reason: Insomnia Methadone HCl (Methadone Hcl 20 Mg/2 Ml Oral.Conc) 90 mg PO DAILY [facility] Last Admin: 02/12/24 09:25 Dose: 90 mg Documented By: MARICARMEN Co-signed By: ARLEEN Ondansetron HCl (Ondansetron Hcl 4 Mg/2 Ml Vial) 4 mg IVPUSH Q8H PRN PRN Reason: Nausea and Vomiting Pharmacy Consult (Consult Rx Vancomycin Dosing) 1 each MISCELLANE DAILY PRN PRN Reason: Consult order Sodium Chloride (0.9 % Sodium Chloride Flush 3 Ml Syringe) 3 ml IVFLUSH QSHIFT [facility] Last Admin: 02/12/24 15:13 Dose: 3 ml Documented By: MARICARMEN Labs 02/11/24 14:24 02/12/24 13:31 Labs: Laboratory Results - last 24 hr 02/12/24 13:31 Estim Creat Clear Calc 142.9 Estimated GFR > 60 Random Vancomycin 3.2 L Microbiology Microbiology Results: Microbiology 02/10/24 20:00 Blood Culture - Preliminary Blood - Venous No growth after 24 hours. 02/10/24 20:00 Blood Culture - Preliminary Blood - Venous No growth after 24 hours. Assessment and Plan (1) Cellulitis: Status: Acute Plan 33-year-old female with pertinent history of IV substance use disorder who presents to the emergency department for evaluation of right foot pain. Patient states her symptoms started 1 day prior to presentation. #. Sepsis due to right foot cellulitis: Admitted with temp 101.2 degrees, leukocytosis and tachycardia, normal lactic acid No recurrent fevers, WBC normalized, blood culture showed no growth IV vancomycin started 02/09 Elevated CRP 15.65, CT foot showed extensive soft tissue inflammatory changes, no evidence of osteomyelitis or septic arthropathy no finding suggestive of necrotizing fasciitis Will transition to po antibiotic,once blood cultures negative times 48 hours, follow CRP #. Right foot onychomycosis: Outpatient treatment #. Polysubstance use disorder: Urine tox positive for opiates, fentanyl, benzo, cocaine and methadone Continue home dose of methadone , seen by Addiction Team they recommend to continue methadone and will continue to follow. DVT prophylaxis: Lovenox Full code Patient will require continued inpatient hospitalization for IV antibiotics (as above), which is not possible in a lesser acute setting. Quality Stroke Does the patient have a stroke diagnosis?: No VTE Prior VTE?: No VTE Risk Level:: Medical - moderate - high VTE Device Contraindication: Treatment Not Indicated VTE Drug Contraindication: N/A - Med Ordered
[2024-02-12 15:31] VITALS: BP 137/75; PULSE 78; RESP 18; TEMP 36.5; O2SAT 94
[2024-02-12 19:59] VITALS: BP 137/84; PULSE 77; RESP 20; TEMP 37; O2SAT 93
[2024-02-12] MEDS: Enoxaparin Sodium 40 MG/0.4 ML SYRINGE SUBCUT (23:11)
[2024-02-13 04:00] VITALS: BP 136/84; PULSE 77; RESP 18; TEMP 36.1; O2SAT 97
[2024-02-13] MEDS: Acetaminophen 325 MG TABLET 650 MG PO (06:11)
[2024-02-13] MEDS: vancomycin HCL 1,500 MG in 0.9 % Sodium Chloride 500 ML 333.33 MG IV (06:12)
[2024-02-13 07:31] VITALS: BP 142/74; PULSE 70; RESP 18; TEMP 36.8; O2SAT 93
[2024-02-13] MEDS: methADONE HCl 20 MG/2 ML ORAL.CONC 90 MG PO (09:37)
[2024-02-13] MEDS: 0.9 % Sodium Chloride Flush 3 ML SYRINGE IVFLUSH (09:41)
--- NOTE | 2024-02-13 11:20 | MHC.CM.PN ---
PT REPORTS SHE WAS RECENTLY RELEASED FROM [facility] AND HAS BEEN HOMELESS SINCE SHE SAYS SHE AND HER BOYFRIEND WERE STAYING TOGETHER, BUT AT DC SHE WILL GO TO HER GRANDFATHERS HOME FOR A FEW DAYS SHE SAYS SHE IS WORRIED ABOUT HER MOBILITY AND FEELS SHE NEEDS CRUTCHES PT HAS A WORKER THROUGH [employer] WHO ASSISTS WITH THINGS LIKE GETTING A PHONE AND GETTING HER ID SHE HAS NO PCP, LIST PROVIDED SHE HAS NO HCP AND DECLINES TO COMPLETE ONE DCP: PT WILL DC TO HER GRANDFATHERS HOME, HE WILL PROVIDE TRANSPORT
[2024-02-13 11:53] LABS: Creatinine Clr Calc Pharmacy 137.5; Estimated Glomerular Filt Rate > 60
--- NOTE | 2024-02-13 12:24 | P.DS_ITS ---
DS: Providers Provider Date of Service: 02/13/24 Date of admission: 02/10/24 22:33 Date of discharge: 02/13/24 Primary care physician: Unknown Physician Consults: 02/10/24 23:10 Addiction Medicine Routine Consulting Provider: Addiction Covering Reason for consultation: polysubstance use disorder DS: Diagnosis Discharge Diagnosis (1) Cellulitis: Status: Acute DS: Summary Hospital Course Hospital Course: History of presenting illness: Date of Service: 02/10/24 Chief Complaint: Foot infection This is a 33-year-old female with pertinent history of IV substance use disorder who presents to the emergency department for evaluation of right foot pain. Patient states her symptoms started 1 day prior to presentation. She initially had right great toe reddening, pain and it soon progressed to involve the right foot. Also with warmth. Does endorse associated fevers and chills. She admits to using IV drugs in her right leg. Never has had skin infection in the past. No chest pain, palpitations, shortness of breath, abdominal pain, changes in urinary or bowel habits. In the emergency department, patient was found to be septic and initiated on empiric IV antibiotics. Hospital course: 33-year-old female with pertinent history of IV substance use disorder who presents to the emergency department for evaluation of right foot pain of 1 day duration patient admitted to medical floor with a diagnosis of Sepsis due to right foot cellulitis, and placed on IV vancomycin, patient had no recurrent fevers, WBC normalized, blood culture showed no growth, CT 4 showed extensive soft tissue inflammatory changes, no evidence of osteomyelitis or septic arthropathy, no finding suggestive of necrotizing fasciitis patient redness swelling improved therefore she is being discharged home on by mouth doxycycline patient has unknown allergy to amoxicillin. She was noted to have Right foot onychomycosis recommend Outpatient treatment with PCP. In regard to Polysubstance use disorder, Urine tox positive for opiates, fentanyl, benzo, cocaine and methadone, recommend to continue methadone and continued outpatient follow-up at methadone clinic. Time Attestation Discharge Coordination Time (in mins): 36 Quality: Safe Use of Opioids Does Pt have an Active Cancer Diagnosis on the Problem List?: No Quality: Stroke Does the patient have a stroke diagnosis?: No Physical Exam Vital Signs: Vital Signs: Last Vital Signs Temp 98.2 F 02/13/24 07:31 Pulse 70 02/13/24 07:31 Resp 18 02/13/24 07:31 BP 142/74 H 02/13/24 07:31 Pulse Ox 93 02/13/24 07:31 O2 Del Method Room Air 02/13/24 07:31 BMI result Body Mass Index 25.7 Const: Other: General in no acute distress. Neck no JVD. CVS regular rate rhythm, systolic murmur Respiratory lungs clear to auscultation, no respiratory distress, no wheeze, no rhonchi. Gastrointestinal abdomen soft, non tender, bowel sounds audible, no guarding , no rigidity. Extremities right great toe and dorsum of foot redness and swelling resolved, thick nail plate , crusted, deformed nails. Neuro non focal ,moving all 4 extremity, speech clear. Skin multiple injection sites. No redness, no swelling or induration. DS: Data Data Completed and Pending Labs on day of discharge: Laboratory Results - last 24 hr 02/12/24 02/13/24 13:31 11:10 Creatinine 0.52 0.54 Estim Creat Clear Calc 142.9 137.5 Estimated GFR > 60 > 60 Random Vancomycin 3.2 L Preliminary micro results at discharge 02/10/24 20:00 Blood Culture - Preliminary Blood - Venous No growth after 48 hours. 02/10/24 20:00 Blood Culture - Preliminary Blood - Venous No growth after 48 hours. Discharge Plan Discharge Anticipated Discharge Date/Time: 02/13/24 12:11 Patient Disposition: Home, Self-Care Discharge Diagnosis: Right foot cellulitis/sepsis Referrals: Physician,Unknown J [Primary Care Provider] - 1 Week Discharge Medications: New doxycycline monohydrate 100 mg capsule 100 mg PO BID Qty: 8 0RF Continued methadone [Methadone Intensol] 10 mg/mL Concentrate 90 mg PO DAILY Discharge Orders: Discharge Order (Routine); Ordered 02/13/24 Ordered By: Radha Buck Diet: Advance to usual diet Activity on Discharge: As tolerated Stand Alone Forms: Patient Portal Discharge page Print Language: [place] Care Plan Goals: Take by mouth doxycycline 1 tablet twice daily for 4 more days Continue home dose of methadone Returned to check with recurrent symptoms of redness, swelling or fever Strongly recommend to abstain from illicit drug use Health Concerns: Polysubstance use disorder Plan of Treatment: Outpatient follow-up with primary care physician call for appointment. Assessment: As above
== END 2024-02-13 14:48 | disposition home or self-care (01) | DRG 720 ==
LOC: HO.ED 22:44 → HO.EDOVER 22:48 → HO.S3 02-11 14:34
PROVIDERS: Physician Assistant; Admitting Provider Student in an Organized Health Care Education/Training Program; Emergency Provider Emergency Medicine; Visit Provider Hospitalist
DX: A41.9 Sepsis, unspecified organism (principal); L03.115 Cellulitis of right lower limb; B35.1 Tinea unguium; F11.20 Opioid dependence, uncomplicated; F19.90 Other psychoactive substance use, unspecified, uncomplicated
CPT/HCPCS: 36415; 73701; 80048; 80053; 80202; 80307; 81001; 82565; 83605; 83690; 84702; 85025; 85652; 86140; 87040; 99285; J1650; J2543; J3370; J3371; Q9967

== ENCOUNTER → 2024-02-10 22:33 | Outpatient (BNV) | payer MEDICAID, SELFPAY | PROVIDERS: Admitting Provider Student in an Organized Health Care Education/Training Program; Emergency Provider Emergency Medicine; Visit Provider Nurse Practitioner Psychiatric/Mental Health | DX: F11.90 Opioid use, unspecified, uncomplicated (principal) | CPT/HCPCS: 99231 ==

== ENCOUNTER → 2024-02-10 22:33 | Outpatient (BNV) | payer MEDICAID, SELFPAY | PROVIDERS: Admitting Provider Student in an Organized Health Care Education/Training Program; Emergency Provider Emergency Medicine; Visit Provider Student in an Organized Health Care Education/Training Program | DX: A41.9 Sepsis, unspecified organism (principal); L03.90 Cellulitis, unspecified | CPT/HCPCS: 99222; 99232; 99233; 99239 ==

== ENCOUNTER 2025-05-10 21:16 | Emergency (ER) | payer MEDICAID, SELFPAY ==
--- NOTE | 2025-05-10 | ECG_ITS ---
Test Reason : SUBSTANCE ABUSE Blood Pressure : */* mmHG Vent. Rate : 60 BPM Atrial Rate : 60 BPM P-R Int : 136 ms QRS Dur : 84 ms QT Int : 434 ms P-R-T Axes : 13 77 55 degrees QTcB Int : 434 ms Normal sinus rhythm Normal ECG No previous ECGs available Referred By: Generic ED Physician Electronically Signed By: MICHELLE COOLEY
[2025-05-10 21:22] VITALS: BP 137/59; BP 140/76; PULSE 67; PULSE 87; RESP 18; TEMP 36.8; O2SAT 97; BMI 34.4
[2025-05-10 21:26] VITALS: BP 137/59; PULSE 67; RESP 18; TEMP 36.8
--- NOTE | 2025-05-10 21:33 | PC.NURSE ---
pt arrested today and made c/o b/l leg pain, legs are red and swollen, no pitting, pain 11/30. t reports pain started a few days ago. admits to crack and heroin use today. PD at bedside.
--- NOTE | 2025-05-10 21:37 | PC.NURSE ---
safety check: PD performed a search at the scene of the arrest. ED security conducted safety search in the room with pt and PD. pt changed over.
[2025-05-10 22:12] LABS: MANUAL DIFF FLAG NO
[2025-05-10 22:13] LABS: Hematocrit 33.5 % (37.0-47.0); Hemoglobin 10.6 g/dl (12.0-16.0); Imm Gran Abs Auto 0.01 X10*3/uL (0.00-0.03); Imm Gran Pct Auto 0.1 % (0.0-0.4); Lymphocytes Absolute Auto 1.1 X10*3/uL (1.2-4.9); Mean Corpuscular HGB Conc 31.6 g/dl (31.0-35.0); Mean Corpuscular Hemoglobin 26.4 pg (27.0-33.0); Mean Corpuscular Volume 83.3 fL (80.0-98.0); NRBC Abs Auto 0.000 X10*3/uL (0.0-0.012); NRBC Pct Auto 0.0 /100WBC (0.0-0.2); Platelet Count 203 X10*3/uL (160-400); Red Blood Count 4.02 X10*6/uL (4.20-5.50); White Blood Count 7.2 X10*3/uL (4.8-10.8)
[2025-05-10 22:36] LABS: Alanine Aminotransferase 12 U/L (0-31); Albumin Level 3.9 g/dL (3.5-5.0); Alkaline Phosphatase 46 U/L (39-117); Anion Gap 10 (12-20); Aspartate Amino Transferase 21 U/L (5-31); Blood Urea Nitrogen 18 mg/dL (9-16); Calcium 8.6 mg/dL (8.4-10.2); Carbon Dioxide 23 mmol/L (22-29); Chloride 108 mmol/L (96-108); Creatinine Clr Calc Pharmacy 148.3; Estimated Glomerular Filt Rate > 60; Potassium 3.9 mmol/L (3.3-5.1); Salicylate < 5.0 mg/dL (15-30); Sodium 137 mmol/L (135-145); Total Protein 6.8 g/dL (6.5-8.0)
--- NOTE | 2025-05-11 01:01 | ED.LOWEXIN ---
HPI - Extremity Injury (Lower) General Chief Complaint: Extremity Injury, Lower Stated Complaint: PD cust-bilat LE cellulitis swollen warm & painful Time Seen by Provider: 05/11/25 00:32 Source: patient, RN notes reviewed, old records reviewed and police Mode of arrival: ambulatory Limitations: no limitations History of Present Illness ED Provider: Darlin Kulkarni PA-C HPI Narrative: Stacie, who prefers to be called Neil, presents to the ED for evaluation of chronic bilateral lower-extremity rash and swelling. On examination, findings are consistent with stasis dermatitis. The patient reports chronic pruritus and has been scratching the affected areas. She is uncertain how long the rash and swelling have been present. She denies prior evaluation for this condition and denies use of compression stockings. No symptoms suggestive of acute infection were reported. Stickers were removed from the legs and photographs were taken for documentation in the chart. Counseling provided regarding chronic nature of condition, importance of compression therapy, leg elevation, and intermittent use of topical steroid ointment during flares. Review of Systems: Integumentary: Positive for pruritic rash and bilateral leg swelling. Related Data Home Medications ?Medication ?Instructions ?Recorded ?Confirmed methadone 10 mg/mL oral 90 mg PO DAILY 02/11/24 02/11/24 concentrate (Methadone Intensol) Previous Rx's ?Medication ?Instructions ?Recorded doxycycline monohydrate 100 mg 100 mg PO BID #8 caps 02/13/24 capsule betamethasone dipropionate 0.05 % 1 appl topical BID PRN rash #45 05/11/25 topical cream grams Allergies Allergy/AdvReac Type Severity Reaction Status Date / Time amoxicillin (AMOXICILLIN) Allergy Unknown UNKNOWN Verified 05/10/25 21:25 Review of Systems Review of Systems: Yes all other systems are reviewed and are negative FORMERLY [facility], [facility] Past Medical History Attestation statement: The following information was validated with the patient. Source: old records reviewed and nursing notes reviewed Medical History IV drug user Social History Social History Household Members: Unknown / Unable to assess Patient Tobacco Use Status: Tobacco use Unknown Smoked in Last 30 Days: Yes Use of substances other than those prescribed or required for medical reasons: Yes Substance Use Type: Crack/Cocaine and Heroin Substance Use Frequency: Daily Last Used Substance: Hours (ago) Advance Directives: No Advance Directives Information Provided: No service: No Physical Exam Exam: Exam: Skin: Bilateral lower extremities with stasis dermatitis characterized by shiny hyperpigmented patches, evidence of excoriations from scratching, and dependent rubor that improves with elevation. Not cellulitis; not infectious or contagious. Vital Signs: Vital Signs: Last Vital Signs Temp 98 F 05/11/25 01:28 Pulse 68 05/11/25 01:28 Resp 18 05/11/25 01:28 BP 132/62 05/11/25 01:28 Pulse Ox 98 05/11/25 01:28 O2 Del Method Room Air 05/11/25 01:28 BMI result Body Mass Index 34.4 Medical Decision Making Differential Diagnosis Differential Diagnoses: The differential diagnosis associated with the presentation includes Admission/Observation Consideration of admission/observation: Escalation of care including admission/observation considered Lab Data MDM Lab Attestation statement: I reviewed the patient's lab results. 05/10/25 21:48 05/10/25 21:48 Labs: Lab Results 05/10/25 Range/Units 21:48 WBC 7.2 (4.8-10.8) X10*3/uL RBC 4.02 L (4.20-5.50) X10*6/uL Hgb 10.6 L (12.0-16.0) g/dl Hct 33.5 L (37.0-47.0) % MCV 83.3 (80.0-98.0) fL MCH 26.4 L (27.0-33.0) pg MCHC 31.6 (31.0-35.0) g/dl RDW 13.5 (11.0-16.0) % Plt Count 203 (160-400) X10*3/uL MPV 11.0 (9.4-12.3) fL Immature Gran % (Auto) 0.1 (0.0-0.4) % Neut % (Auto) 76.6 H (45-73) % Lymph % (Auto) 15.4 L (20-40) % [place] % (Auto) 6.6 (2-11) % Eos % (Auto) 1.0 (0-4) % Baso % (Auto) 0.3 (0-2) % Lymph # (Auto) 1.1 L (1.2-4.9) X10*3/uL [place] # (Auto) 0.5 (0.1-1.2) X10*3/uL Eos # (Auto) 0.1 (0.0-0.4) X10*3/uL Baso # (Auto) 0.0 (0.0-0.2) X10*3/uL Abs Immat Gran (auto) 0.01 (0.00-0.03) X10*3/uL Absolute Neuts (auto) 5.5 (2.0-8.3) x10*3/uL Absolute Nucleated RBC 0.000 (0.0-0.012) X10*3/uL Nucleated RBC % (auto) 0.0 (0.0-0.2) /100WBC Sodium 137 (135-145) mmol/L Potassium 3.9 (3.3-5.1) mmol/L Chloride 108 (96-108) mmol/L Carbon Dioxide 23 (22-29) mmol/L Anion Gap 10 L (12-20) BUN 18 H (9-16) mg/dL Creatinine 0.66 (0.5-1.4) mg/dL Estim Creat Clear Calc 148.3 Estimated GFR > 60 Random Glucose 91 (60-115) mg/dL Calcium 8.6 (8.4-10.2) mg/dL Total Bilirubin 0.3 (0.0-1.0) mg/dL AST 21 (5-31) U/L ALT 12 (0-31) U/L Alkaline Phosphatase 46 (39-117) U/L Total Protein 6.8 (6.5-8.0) g/dL Albumin 3.9 (3.5-5.0) g/dL Salicylates < 5.0 L (15-30) mg/dL Ethyl Alcohol < 10 mg/dL Independent Historian Clinical information obtained from an independent historian. History obtained from or confirmed by: Other (POLICE) Prescription Management I considered prescription management with: Antibiotic Chronic Conditions Patient?s care impacted by: Other (obesity) Social Determinants Patient?s care significantly limited by Social Determinants of Health including: Problems related to primary support group and Other Social Determinant of Health Discharge Plan Discharge Clinical Impression: Stasis dermatitis of left lower extremity due to peripheral venous hypertension, Stasis dermatitis of right lower extremity due to peripheral venous hypertension Patient Disposition: Home, Self-Care Instructions: Stasis Dermatitis (ED) Additional Instructions: Stasis Dermatitis Discharge Date of Service: 2025-05-11 [facility] Diagnosis: Chronic stasis dermatitis of bilateral lower extremities, without evidence of acute infection. Hospital Course: Neil presented to the ED for evaluation of chronic bilateral lower-extremity rash and swelling. Physical exam revealed findings consistent with stasis dermatitis: shiny hyperpigmented patches, excoriations from scratching, and dependent rubor improving with elevation. No signs of cellulitis or acute infection were present. Stickers were removed from the legs, and photographs were obtained for documentation. The patient was counseled regarding the chronic nature of stasis dermatitis and the importance of ongoing management. Treatment Recommendations: - Compression therapy: Daily use of knee-high compression stockings is recommended to reduce edema and improve venous return. Compression therapy is the cornerstone of stasis dermatitis management and should be tailored to patient tolerance and ability. - Leg elevation: Frequent elevation of the legs is advised to further decrease venous hypertension and swelling. - Topical corticosteroids: Medium- to high-potency topical steroid ointment prescribed for use during flares to control pruritus and inflammation. Short-term use is preferred to minimize risk of skin atrophy. - Skin care: Gentle cleansers and ceramide-containing moisturizers may be beneficial for xerosis and to support skin barrier function. Prescriptions Provided: - Compression stockings (knee-high, 20?30 mm Hg) - Topical steroid ointment (for use during flares) Follow-Up Instructions: - Continue daily compression and leg elevation as tolerated. - Apply topical steroid ointment only during symptomatic flares. - Monitor for signs of infection (increased redness, warmth, pain, or drainage); seek medical attention if these develop. - Routine follow-up with primary care or facility medical provider for ongoing management and assessment of response to therapy. Discharge to: [facility], with education provided regarding chronicity and self-management of stasis dermatitis. Prescriptions: New betamethasone dipropionate 0.05 % cream 1 appl topical BID PRN (Reason: rash) Qty: 45 2RF Rx Instructions: Apply to affected areas on leg, thin layer, apply for 2 weeks then take a week off and repeat cycle No Action methadone [Methadone Intensol] 10 mg/mL Concentrate 90 mg PO DAILY doxycycline monohydrate 100 mg capsule 100 mg PO BID Qty: 8 0RF Interventions: ED Discharge Assessment Last Done: 05/11/25 01:28 Discharge Date/Time: 05/11/25 01:31 Print Language: Mongolian
[2025-05-11 01:28] VITALS: BP 132/62; PULSE 68; RESP 18; TEMP 36.6; O2SAT 98
== END 2025-05-11 01:31 | disposition home or self-care (01) ==
PROVIDERS: Emergency Provider Emergency Medicine
DX: I87.303 Chronic venous hypertension (idiopathic) without complications of bilateral lower extremity (principal); I87.2 Venous insufficiency (chronic) (peripheral); I10 Essential (primary) hypertension; Z88.0 Allergy status to penicillin
CPT/HCPCS: 36415; 80053; 80179; 80307; 85025; 93005; 99283; 99284

== ENCOUNTER → 2025-05-10 21:43 | Outpatient (BNV) | payer MEDICAID, SELFPAY | PROVIDERS: Emergency Provider Emergency Medicine; Visit Provider Internal Medicine | DX: F19.10 Other psychoactive substance abuse, uncomplicated (principal) | CPT/HCPCS: 93010 ==